=== PATIENT | female | born 1990 | race Caucasian/White ===

== ENCOUNTER 2017-09-22 11:34 | Emergency (ER) | payer MEDICAID ==
[2017-09-22 11:40] VITALS: BP 131/90; PULSE 66; TEMP 98; O2SAT 100
--- NOTE | 2017-09-22 12:36 | C.PDOC ---
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 Patient denies LOC, headache, neck pain, numbness, weakness, or vision change. Time Seen by Provider: 09/22/17 12:02 Chief Complaint (Nursing): Abnormal Skin Integrity History Per: Patient History/Exam Limitations: no limitations Onset/Duration Of Symptoms: Mins Current Symptoms Are (Timing): Still Present Location Of Injury: Left: Head (eyebrow) Quality Of Symptoms: Painful Recent travel outside of the [place]: No Additional History Per: Patient Past Medical History Reviewed: Historical Data, Nursing Documentation, Vital Signs Vital Signs: Last Vital Signs Temp 98 F 09/22/17 11:36 Pulse 66 09/22/17 11:36 Resp 18 09/22/17 12:36 BP 131/90 09/22/17 11:36 Pulse Ox 100 09/22/17 17:59 - Medical History PMH: Asthma Surgical History: No Surg Hx Family History: States: Unknown Family Hx - Social History Hx Tobacco Use: No Hx Alcohol Use: No Hx Substance Use: No - Immunization History Hx Tetanus Toxoid Vaccination: No Hx Influenza Vaccination: No Hx Pneumococcal Vaccination: No Review Of Systems Constitutional: Negative for: Fever Eyes: Negative for: Vision Change Musculoskeletal: Negative for: Neck Pain, Back Pain Skin: Positive for: Other (Laceration to the left eyebrow) Neurological: Negative for: Weakness, Numbness, Headache, Dizziness Physical Exam - Physical Exam Appears: Non-toxic, No Acute Distress Skin: Normal Color, Warm, Dry, No Rash Head: Normacephalic, Laceration (1 cm to the medial left eyebrow) Eye(s): bilateral: Normal Inspection, PERRL, EOMI Ear(s): Bilateral: Normal Oral Mucosa: Moist Throat: No Erythema, No Exudate Neck: Normal ROM, Supple Extremity: Normal ROM, No Swelling Neurological/Psych: Oriented x3, Normal Speech, Normal Cognition, Normal Motor Gait: Steady ED Course And Treatment O2 Sat by Pulse Oximetry: 100 (On RA) Pulse Ox Interpretation: Normal Laceration - Laceration Repair No standard instances Wound Length (In cm): 1 cm Description Of Wound: Linear Wound Cleansed With: Sterile Saline Anesthesia: Lidocaine 1% Wound Examination: Irrigated With Saline, No FB With Wound Exploration Wound Closure: Steri Strips (X2), Skin Glue Wound Complexity: Simple Medical Decision Making Medical Decision Making: Wound was anesthetized, cleansed thoroughly, NS irrigation, and explored: No foreign body or deep structure involvement was detected. Entire laceration closed with skin glue. Patients condition remained stable throughout Emergency Department evaluation with no evidence of neurological instability. Disposition - Disposition Referrals: Armin Dai MD [Medical Doctor] - Disposition: HOME/ ROUTINE Disposition Time: 12:33 Condition: GOOD Additional Instructions: Keep the wound clean and dry. 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 - Scribe Statement The provider has reviewed the documentation as recorded by the Scribe Guille Langford All medical record entries made by the Scribe were at my direction and personally dictated by me. I have reviewed the chart and agree that the record accurately reflects my personal performance of the history, physical exam, medical decision making, and the department course for this patient. I have also personally directed, reviewed, and agree with the discharge instructions and disposition.
[2017-09-22 12:57] VITALS: RESP 18
== END 2017-09-22 12:36 | disposition home or self-care (01) ==
LOC: C.ER 11:34
DX: S01.112A Laceration without foreign body of left eyelid and periocular area, initial encounter (principal); W22.8XXA Striking against or struck by other objects, initial encounter; Y92.89 Other specified places as the place of occurrence of the external cause

== ENCOUNTER 2018-01-17 09:12 | Inpatient (IN) | payer MEDICAID ==
[2018-01-17 10:01] LABS: BASO # 0.1 K/uL (0.0-0.2); BASO % 0.7 % (0.0-2.0); EOS # 0.1 K/uL (0.0-0.7); EOS % 1.5 % (0.0-4.0); LYMPH # 1.9 K/uL (1.0-4.3); MEAN CORPUSCULAR HEMOGLOBIN 31.6 pg (27.0-31.0); MEAN PLATELET VOLUME 9.5 fL (7.2-11.7); MONO # 0.8 K/uL (0.0-0.8); MONO % 8.1 % (0.0-10.0); NEUT # 7.1 K/uL (1.8-7.0); NEUT % 70.7 % (50.0-75.0); RBC 4.12 Mil/uL (3.80-5.20); RED CELL DISTRIBUTION WIDTH 14.1 % (11.5-14.5)
[2018-01-17 10:07] LABS: HCG,QUALITATIVE URINE NEGATIVE (NEGATIVE)
[2018-01-17 10:15] LABS: SQUAMOUS EPITHIAL 27 /hpf (0-5); URINE BACTERIA RARE (<OCC); URINE BILIRUBIN NEGATIVE (NEGATIVE); URINE BLOOD 3+ (NEGATIVE); URINE CLARITY Hazy (Clear); URINE COLOR Amber (YELLOW); URINE GLUCOSE (UA) NORMAL (Normal); URINE LEUKOCYTE ESTERASE TRACE Leu/uL (Negative); URINE PROTEIN 1+ mg/dL (NEGATIVE)
[2018-01-17 10:19] LABS: GFR AFRICAN-AMERICAN > 60; GFR NON-AFRICAN AMERICAN > 60
[2018-01-17 10:31] LABS: BLOOD UREA NITROGEN 5 mg/dL (7-17)
--- NOTE | 2018-01-17 10:45 | C.PDOC ---
History Of Present Illness 27yo female with history of asthma, presents to ED with complaints of left sided anterior chest pain, left rib pain and left shoulder pain for the past couple days. Patient states 1 month ago, she received plastic surgery in [facility], involving her abdomen, buttocks and breasts and states she was healing well. Patient first experienced her symptoms at work yesterday and states it is exacerbated with deep inspiration and movement. She reports chills last night but denies any fever, cough, nausea, vomiting or diarrhea. Patient has no other medical complaints. Time Seen by Provider: 01/17/18 09:24 Chief Complaint (Nursing): Upper Extremity Problem/Injury History Per: Patient History/Exam Limitations: no limitations Onset/Duration Of Symptoms: Days Current Symptoms Are (Timing): Still Present Quality: "Pain" Additional History Per: Patient Past Medical History Reviewed: Historical Data, Nursing Documentation, Vital Signs Vital Signs: Last Vital Signs Temp 97.9 F 01/17/18 12:48 Pulse 88 01/17/18 12:48 Resp 18 01/17/18 12:48 BP 137/98 H 01/17/18 12:48 Pulse Ox 95 01/17/18 13:13 - Medical History PMH: Asthma Other Surgeries: liposuction, breast and buttock augmentation Family History: States: Unknown Family Hx - Social History Hx Tobacco Use: No Hx Alcohol Use: No Hx Substance Use: No - Immunization History Hx Tetanus Toxoid Vaccination: No Hx Influenza Vaccination: No Hx Pneumococcal Vaccination: No Review Of Systems Except As Marked, All Systems Reviewed And Found Negative. Constitutional: Positive for: Chills. Negative for: Fever Cardiovascular: Positive for: Chest Pain Respiratory: Negative for: Cough, Shortness of Breath Gastrointestinal: Negative for: Nausea, Vomiting, Diarrhea Musculoskeletal: Positive for: Shoulder Pain (left), Arm Pain (left) Physical Exam - Physical Exam Appears: Non-toxic, Other (in pain) Skin: Normal Color, Warm, Dry Head: Normacephalic Eye(s): bilateral: Normal Inspection Oral Mucosa: Moist Throat: Normal Neck: Normal ROM, Supple Chest: Symmetrical, Tenderness (reproducibl tenderness to left clavicle) Cardiovascular: Rhythm Regular (tachycardic) Respiratory: Normal Breath Sounds Gastrointestinal/Abdominal: Normal Exam, Soft, No Tenderness Back: Normal Inspection Extremity: Normal ROM, Tenderness (tenderness left shoulder), No Deformity Neurological/Psych: Oriented x3 ED Course And Treatment - Laboratory Results Result Diagrams: 01/17/18 09:55 01/17/18 09:55 ECG: Interpreted By Me, Viewed By Me ECG Rhythm: Sinus Rhythm Interpretation Of ECG: Flipped T's in inferior leads. No ST/T wave changes Rate From EC O2 Sat by Pulse Oximetry: 95 (RA) Pulse Ox Interpretation: Normal Medical Decision Making Medical Decision Making: Impression: Musculoskeletal pain r/o PE Plan: -- Labs -- EKG -- CTA Chest Time: 1247 Call from radiologist, patient with PE in bilateral lungs. CTA Chest FINDINGS: PULMONARY ARTERIES: There are bilateral pulmonary arterial emboli seen as pulmonary arterial filling defects in both lower lobes. These are seen segmental and subsegmental vessels in the lower lobes. No large central pulmonary embolus is evident. AORTA: No acute findings. No thoracic aortic aneurysm. LUNGS: There is focal ill-defined opacity in the left lower lobe. Nonspecific. No other infiltrate is seen. No pulmonary mass is identified. PLEURAL SPACES: Unremarkable. No effusion or pneuomothorax. HEART: Unremarkable. No cardiomegaly. No significant pericardial effusion. LYMPH NODES: No lymphadenopathy. BONES, CHEST WALL: Unremarkable. No fracture or destructive lesion bilateral breast augmentation prostheses are noted. OTHER FINDINGS: Unremarkable. IMPRESSION: Bilateral lower lobe pulmonary emboli in segmental and subsegmental branches. Nonspecific focal opacity in the left lower lobe. No other acute abnormality. These findings were discussed by telephone with Dr. Rich at 12:46 p.m. on 2017. Time: 1258 Heparin Drip and bolus ordered. Morphine 4mg IV ordered. Time: [address] Oneida Paredes who will admit patient under his service to [facility] for PE and dyspnea. Disposition Counseled Patient/Family Regarding: Studies Performed, Diagnosis - Disposition Disposition: HOSPITALIZED Disposition Time: 13:06 Condition: GUARDED Forms: [employer] (Macedonian) - Clinical Impression Clinical Impression: Pulmonary embolism, Dyspnea - Scribe Statement The provider has reviewed the documentation as recorded by the Scribe (Alicia Mcqueen) Provider Attestation: All medical record entries made by the Scribe were at my direction and personally dictated by me. I have reviewed the chart and agree that the record accurately reflects my personal performance of the history, physical exam, medical decision making, and the department course for this patient. I have also personally directed, reviewed, and agree with the discharge instructions and disposition. Decision To Admit - Pt Status Changed To: Hospital Disposition Of: Inpatient - Admit Certification Admit to Inpatient:: After my assessment, the patient will require hospitalization for at least two midnights. This is because of the severity of symptoms shown, intensity of services needed, and/or the medical risk in this patient being treated as an outpatient. - InPatient: Physician Admission Certification: I certify that this patient requires 2 or more midnights of care for the following reason:: PE, b/l - . Bed Request Type: Telemetry Admitting Physician: Mike Paredes Patient Diagnosis: Pulmonary embolism, Dyspnea
[2018-01-17] MEDS ORDERED: Iodixanol 320 MG/ML 100 ML BOTTLE IV ONE (10:49)
--- NOTE | 2018-01-17 12:48 | CT ---
PROCEDURE: CT Chest with contrast (Pulmonary Angiogram) HISTORY: SOB, shoulder pain COMPARISON: None available. TECHNIQUE: Axial computed tomography images were obtained of the chest in the pulmonary arterial phase of enhancement. Coronal and sagittal reformatted images were created and reviewed. Intravenous contrast dose: 100 mL Visipaque 320 Radiation dose: Total exam DLP = 436.83 mGy-cm. This CT exam was performed using one or more of the following dose reduction techniques: Automated exposure control, adjustment of the mA and/or kV according to patient size, and/or use of iterative reconstruction technique. FINDINGS: PULMONARY ARTERIES: There are bilateral pulmonary arterial emboli seen as pulmonary arterial filling defects in both lower lobes. These are seen segmental and subsegmental vessels in the lower lobes. No large central pulmonary embolus is evident. AORTA: No acute findings. No thoracic aortic aneurysm. LUNGS: There is focal ill-defined opacity in the left lower lobe. Nonspecific. No other infiltrate is seen. No pulmonary mass is identified. PLEURAL SPACES: Unremarkable. No effusion or pneuomothorax. HEART: Unremarkable. No cardiomegaly. No significant pericardial effusion. LYMPH NODES: No lymphadenopathy. BONES, CHEST WALL: Unremarkable. No fracture or destructive lesion bilateral breast augmentation prostheses are noted. OTHER FINDINGS: Unremarkable. IMPRESSION: Bilateral lower lobe pulmonary emboli in segmental and subsegmental branches. Nonspecific focal opacity in the left lower lobe. No other acute abnormality. These findings were discussed by telephone with Dr. Rich at 12:46 p.m. on 01/17/2018.
[2018-01-17] MEDS ORDERED: Heparin25000 units/250ml 1/2NS 25,000 UNITS/250 ML BAG IV PRN (13:06)
[2018-01-17] MEDS ORDERED: Morphine 4 MG/ML VIAL ONE (13:09)
[2018-01-17 13:40] LABS: INR 1.3; PROTHROMBIN TIME 14.1 SECONDS (9.7-12.2)
--- NOTE | 2018-01-17 14:17 | CP.PCM.HP ---
History of Present Illness - History of Present Illness History of Present Illness: Code status: Full code PMD: Dr. [facility] Proxy: Karan Mitchell () [phone] PGY-1 H&P for Dr. Homa Paredes CC: Dyspnea This is a 27 year old female with PMHx asthma who presented to the ED with dyspnea, left sided subclavicular pain, left anterior rib pain. This began yesterday after returning home from work. Patient climbed the stairs and felt some dyspnea as well as discomfort in the aforementioned regions. Patient states that pain is intermittent, described as stabbing sensation without radiation. It can go up to 10/10 and is exacerbated with deep inspiration. Patient states that the morphine given in the ED has relieved her pain. Of note , patient recently had multiple plastic surgeries on December 19, 2017 in [facility]. These include breast augmentation, LipoLaser treatments, and fat transfer from the abdomen to the buttocks. Patient states that she was not sedentary post procedures. However she does note that a few days after the surgeries, she had pain in the right leg which has since resolved. PMHx: Asthma PSHx: on December 19, 2017, had breast augmentation, LipoLaser treatments, fat transfer from abdomen to buttocks. Allergies: NKDA Social: Smoked briefly and occasionally at age 17 or 18 but not daily. Occasional alcohol use. Denies drug use. 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 Lives with , son, and mother at home. Family Hx: Grandfather with DM. Mother with DM and HTN. Denies family history of coagulation disorders. Home Meds: PRN albuterol inhaler she uses once a month. Metformin 500 mg daily, Spironolactone 50 mg daily, Potassium 8 mEQ daily. Present on Admission - Present on Admission Any Indicators Present on Admission: Yes History of DVT/PE: Yes - Notes: Notes:: PE on this admission Review of Systems - Constitutional Constitutional: absent: Chills, Fever - EENT Eyes: absent: Change in Vision Ears: absent: Decreased Hearing Nose/Mouth/Throat: absent: Nasal Congestion - Cardiovascular Cardiovascular: absent: Chest Pain - Respiratory Respiratory: Dyspnea, Pain on Inspiration. absent: Cough, Wheezing - Gastrointestinal Gastrointestinal: absent: Abdominal Pain, Nausea, Vomiting - Genitourinary Genitourinary: absent: Dysuria - Musculoskeletal Musculoskeletal: Other (rib pain) - Integumentary Integumentary: Other (multiple sutures from prior procedure) - Neurological Neurological: absent: Weakness - Psychiatric Psychiatric: absent: Anxiety - Endocrine Endocrine: absent: Palpitations Past Patient History - Past Social History Smoking Status: Never Smoked - PULMONARY Hx Asthma: Yes - PSYCHIATRIC Hx Substance Use: No - SURGICAL HISTORY Hx Surgeries: Yes Other/Comment: breast augmentation, laser liposuction - ANESTHESIA Hx Anesthesia: No Hx Anesthesia Reactions: No Meds Allergies/Adverse Reactions: Allergies Allergy/AdvReac Type Severity Reaction Status Date / Time No Known Allergies Allergy Verified 09/22/17 11:40 Physical Exam - Constitutional Appears: No Acute Distress - Head Exam Head Exam: ATRAUMATIC, NORMOCEPHALIC - Eye Exam Eye Exam: EOMI, PERRL - ENT Exam ENT Exam: Mucous Membranes Moist - Respiratory Exam Respiratory Exam: Decreased Breath Sounds (likely due to poor inspiratory effort secondary to pain), NORMAL BREATHING PATTERN. absent: Rales, Rhonchi, Wheezes - Cardiovascular Exam Cardiovascular Exam: REGULAR RHYTHM, +S1, +S2 - GI/Abdominal Exam GI & Abdominal Exam: Normal Bowel Sounds, Soft. absent: Distended, Tenderness Additional comments: Three pieces of long tape on the abdomen and two small pieces as well - Extremities Exam Extremities exam: Positive for: normal capillary refill, normal inspection, pedal pulses present. Negative for: pedal edema, tenderness - Neurological Exam Neurological exam: Alert, CN II-XII Intact, Oriented x3 - Psychiatric Exam Psychiatric exam: Normal Affect, Normal Mood - Skin Skin Exam: Dry, Normal Color, Warm Additional comments: Sutures on top of the gluteal fold Sutures on each of the breasts Results - Vital Signs Recent Vital Signs: Last Vital Signs Temp 97.9 F 01/17/18 12:48 Pulse 88 01/17/18 12:48 Resp 18 01/17/18 12:48 BP 137/98 H 01/17/18 12:48 Pulse Ox 95 01/17/18 13:23 - Labs Result Diagrams: 01/17/18 09:55 01/17/18 09:55 Labs: Laboratory Results - last 24 hr 01/17/18 01/17/18 01/17/18 09:55 09:55 09:55 WBC 10.0 RBC 4.12 Hgb 13.0 D Hct 38.3 MCV 93.0 MCH 31.6 H MCHC 34.0 RDW 14.1 Plt Count 253 MPV 9.5 Neut % (Auto) 70.7 Lymph % (Auto) 19.0 L Will % (Auto) 8.1 Eos % (Auto) 1.5 Baso % (Auto) 0.7 Neut # (Auto) 7.1 H Lymph # (Auto) 1.9 Will # (Auto) 0.8 Eos # (Auto) 0.1 Baso # (Auto) 0.1 PT INR APTT Sodium 140 Potassium 4.6 Chloride 101 Carbon Dioxide 25 Anion Gap 18 BUN 5 L Creatinine 0.6 L Est GFR ( Amer) > 60 Est GFR (Non-Af Amer) > 60 Random Glucose 94 Calcium 9.0 Urine Color [place] Urine Clarity Hazy Urine pH 6.0 Ur Specific [place] 1.018 Urine Protein 1+ H Urine Glucose (UA) Normal Urine Ketones Negative Urine Blood 3+ H Urine Nitrate Negative Urine Bilirubin Negative Urine Urobilinogen 2.0 H Ur Leukocyte Esterase Trace Urine WBC (Auto) 10 H Urine RBC (Auto) 7 H Ur Squamous Epith Cells 27 H Urine Bacteria Rare Urine HCG, Qual Negative 01/17/18 13:24 WBC RBC Hgb Hct MCV MCH MCHC RDW Plt Count MPV Neut % (Auto) Lymph % (Auto) Will % (Auto) Eos % (Auto) Baso % (Auto) Neut # (Auto) Lymph # (Auto) Will # (Auto) Eos # (Auto) Baso # (Auto) PT 14.1 H INR 1.3 APTT 34 Sodium Potassium Chloride Carbon Dioxide Anion Gap BUN Creatinine Est GFR ( Amer) Est GFR (Non-Af Amer) Random Glucose Calcium Urine Color Urine Clarity Urine pH Ur Specific [place] Urine Protein Urine Glucose (UA) Urine Ketones Urine Blood Urine Nitrate Urine Bilirubin Urine Urobilinogen Ur Leukocyte Esterase Urine WBC (Auto) Urine RBC (Auto) Ur Squamous Epith Cells Urine Bacteria Urine HCG, Qual Assessment & Plan - Assessment and Plan (Free Text) Plan: Bilateral Pulmonary Emboli CTA shows bilateral lower lobe pulmonary emboli in segmental and subsegmental branches Therapeutic Lovenox 70 mg SC Q12 Hypercoagulable work-up including * Factor 5 leiden * Antithrombin 3 mutation * Prothrombin gene mutation * Lupus anticoagulant * Protein C&S studies * Antiphospholipid antibody f/u echocardiogram to assess for right heart strain f/u venous dopplers Toradol 15 mg Q6 for moderate and 30 mg IV for severe pain History of Asthma Controlled as evidenced by the fact that the patient uses her inhaler infrequently around once a month Duonebs Q6 prn Questionable History of Hypertension Patient denies history of Hypertension despite her medication list Patient was placed on Spironolactone 50 mg daily post surgery though denies history of HTN Monitor blood pressure Questionable History of Diabetes Patient denies history of diabetes despite her medication list Patient was placed on Metformin 500 mg once daily post surgery though denies history of DM f/u hemoglobin A1c Prophylactic Measures Heart Healthy Diet Lovenox 70 mg Q12H Protonix 40 mg PO daily Discussed with Dr. Oneida Brar PGY-1
[2018-01-17] MEDS: Enoxaparin 80 mg Syringe SC SCH ×2 (14:33→21:52)
[2018-01-17] MEDS ORDERED: Albuterol HFA 90 mcg/actuation (8 g) INH PRN (14:56)
[2018-01-17] MEDS: Pantoprazole 40 mg EC Tab PO SCH (16:42)
[2018-01-17] MEDS: (Novolin R) Insulin Human Regular 100 units/ml vial SC SCH ×2 (16:46→21:11)
[2018-01-17 16:53] VITALS: RESP 20
--- NOTE | 2018-01-17 18:35 | CARD ---
APPROVED REPORT EXAM: Two-dimensional and M-mode echocardiogram with Doppler and color Doppler. Other Information Quality : LimitedRhythm : INDICATION Pulmonary Embolism Bilateral Pulmonary Edema 2D DIMENSIONS IVSd0.8 (0.7-1.1cm)LVDd4.7 (3.9-5.9cm) PWd0.8 (0.7-1.1cm)LVDs3.1 (2.5-4.0cm) FS (%) 33.5 %LVEF (%)62.3 (>50%) M-Mode DIMENSIONS Left Atrium (MM)2.76 (2.5-4.0cm)Aortic Root2.88 (2.2-3.7cm) Aortic Cusp Exc.1.62 (1.5-2.0cm) Mitral Valve MV E Wcdcxgtp74.7cm/sMV A Hiccohrf81.3cm/sE/A ratio1.0 TDI E/Lateral E'0.0E/Medial E'0.0 LEFT VENTRICLE The left ventricle is normal size. There is normal left ventricular wall thickness. The left ventricular function is normal. The left ventricular ejection fraction is within the normal range. No regional wall motion abnormalities noted. The left ventricular diastolic function is indeterminate. RIGHT VENTRICLE The right ventricle is mildly dilated. The right ventricular systolic function is normal. ATRIA The left atrium size is normal. The right atrium size is normal. AORTIC VALVE The aortic valve is normal in function. No aortic regurgitation is present. There is no aortic valvular stenosis. There is no aortic valvular vegetation. MITRAL VALVE The mitral valve is normal in structure and function. There is no evidence of mitral valve prolapse. There is no mitral valve stenosis. There is no mitral valve regurgitation noted. TRICUSPID VALVE The tricuspid valve is normal in structure and function. There is no tricuspid valve regurgitation noted. There is no tricuspid valve prolapse or vegetation. There is no tricuspid valve stenosis. PULMONIC VALVE The pulmonary valve is normal in structure and function. There is mild pulmonic valvular regurgitation. There is no pulmonic valvular stenosis. GREAT VESSELS The aortic root is normal in size. The ascending aorta is normal in size. PERICARDIAL EFFUSION There is no pleural effusion. <Conclusion> Study quality is sub-optimal Normal LV systolic functioin. Mildly diilated RV with normal RF systolic function. Normal Doppler.
[2018-01-17] MEDS: Albuterol-Ipratrop 3 mg / 0.5 (3 ml) UD INH PRN (19:39)
[2018-01-18 06:39] LABS: BASO % 0.3 % (0.0-2.0); EOS # 0.1 K/uL (0.0-0.7); EOS % 1.4 % (0.0-4.0); HEMOGLOBIN 12.8 g/dL (11.0-16.0); LYMPH # 1.7 K/uL (1.0-4.3); LYMPH % 17.9 % (20.0-40.0); MEAN CELL VOLUME 93.2 fL (81.0-99.0); MEAN CORPUSCULAR HGB CONC 34.3 g/dL (33.0-37.0); MEAN PLATELET VOLUME 9.2 fL (7.2-11.7); NEUT # 6.4 K/uL (1.8-7.0); NEUT % 69.4 % (50.0-75.0); RBC 4.01 Mil/uL (3.80-5.20); RED CELL DISTRIBUTION WIDTH 14.3 % (11.5-14.5); WHITE BLOOD COUNT 9.3 K/uL (4.8-10.8)
[2018-01-18 07:34] LABS: ALB/GLOB RATIO 1.1 (1.0-2.1); ALBUMIN 3.8 g/dL (3.5-5.0); ALT/SGPT 31 U/L (9-52); AST/SGOT 23 U/L (14-36); BLOOD UREA NITROGEN 7 mg/dL (7-17); CALCIUM 9.2 mg/dl (8.6-10.4); GFR AFRICAN-AMERICAN > 60; GFR NON-AFRICAN AMERICAN > 60
[2018-01-18 07:48] VITALS: BP 108/70; TEMP 98.3; O2SAT 100
[2018-01-18] MEDS: (Novolin R) Insulin Human Regular 100 units/ml vial SC SCH ×2 (08:30→12:00)
[2018-01-18] MEDS: Albuterol-Ipratrop 3 mg / 0.5 (3 ml) UD INH PRN (08:31)
[2018-01-18 08:53] VITALS: PULSE 85
[2018-01-18] MEDS: Pantoprazole 40 mg EC Tab PO SCH (09:42)
[2018-01-18] MEDS: Enoxaparin 80 mg Syringe SC SCH (09:42)
--- NOTE | 2018-01-18 11:56 | CP.PCM.DIS ---
<Stalin Thomas - Last Filed: 01/18/18 12:24> Provider - Provider Date of Admission: 01/17/18 13:23 Attending physician: Mike Paredes MD Primary care physician: PMD: Dr. Dai Time Spent in preparation of Discharge (in minutes): 33 Hospital Course - Lab Results Lab Results: Most Recent Lab Values WBC 9.3 K/uL (4.8-10.8) 01/18/18 06:20 RBC 4.01 Mil/uL (3.80-5.20) 01/18/18 06:20 Hgb 12.8 g/dL (11.0-16.0) 01/18/18 06:20 Hct 37.4 % (34.0-47.0) 01/18/18 06:20 MCV 93.2 fL (81.0-99.0) 01/18/18 06:20 MCH 32.0 pg (27.0-31.0) H 01/18/18 06:20 MCHC 34.3 g/dL (33.0-37.0) 01/18/18 06:20 RDW 14.3 % (11.5-14.5) 01/18/18 06:20 Plt Count 273 K/uL (130-400) 01/18/18 06:20 MPV 9.2 fL (7.2-11.7) 01/18/18 06:20 Neut % (Auto) 69.4 % (50.0-75.0) 01/18/18 06:20 Lymph % (Auto) 17.9 % (20.0-40.0) L 01/18/18 06:20 [place] % (Auto) 11.0 % (0.0-10.0) H 01/18/18 06:20 Eos % (Auto) 1.4 % (0.0-4.0) 01/18/18 06:20 Baso % (Auto) 0.3 % (0.0-2.0) 01/18/18 06:20 Neut # (Auto) 6.4 K/uL (1.8-7.0) 01/18/18 06:20 Lymph # (Auto) 1.7 K/uL (1.0-4.3) 01/18/18 06:20 [place] # (Auto) 1.0 K/uL (0.0-0.8) H 01/18/18 06:20 Eos # (Auto) 0.1 K/uL (0.0-0.7) 01/18/18 06:20 Baso # (Auto) 0.0 K/uL (0.0-0.2) 01/18/18 06:20 PT 14.1 SECONDS (9.7-12.2) H 01/17/18 13:24 INR 1.3 01/17/18 13:24 APTT 34 SECONDS (21-34) 01/17/18 13:24 Sodium 142 mmol/L (132-148) 01/18/18 06:20 Potassium 4.0 mmol/L (3.6-5.2) 01/18/18 06:20 Chloride 101 mmol/L (98-107) 01/18/18 06:20 Carbon Dioxide 28 mmol/L (22-30) 01/18/18 06:20 Anion Gap 16 (10-20) 01/18/18 06:20 BUN 7 mg/dL (7-17) 01/18/18 06:20 Creatinine 0.7 mg/dL (0.7-1.2) 01/18/18 06:20 Est GFR ( Amer) > 60 01/18/18 06:20 Est GFR (Non-Af Amer) > 60 01/18/18 06:20 POC Glucose (mg/dL) 103 mg/dL (65-110) 01/18/18 06:19 Random Glucose 107 mg/dL (65-105) H 01/18/18 06:20 Hemoglobin A1c 4.6 % (4.2-6.5) 01/18/18 06:20 Calcium 9.2 mg/dl (8.6-10.4) 01/18/18 06:20 Phosphorus 4.4 mg/dL (2.5-4.5) 01/18/18 06:20 Magnesium 1.7 mg/dL (1.6-2.3) 01/18/18 06:20 Total Bilirubin 0.8 mg/dL (0.2-1.3) 01/18/18 06:20 AST 23 U/L (14-36) 01/18/18 06:20 ALT 31 U/L (9-52) 01/18/18 06:20 Alkaline Phosphatase 60 U/L (38-126) 01/18/18 06:20 Total Protein 7.2 g/dL (6.3-8.3) 01/18/18 06:20 Albumin 3.8 g/dL (3.5-5.0) 01/18/18 06:20 Globulin 3.4 gm/dL (2.2-3.9) 01/18/18 06:20 Albumin/Globulin Ratio 1.1 (1.0-2.1) 01/18/18 06:20 Urine Color Maritza (YELLOW) 01/17/18 09:55 Urine Clarity Hazy (Clear) 01/17/18 09:55 Urine pH 6.0 (5.0-8.0) 01/17/18 09:55 Ur Specific [place] 1.018 (1.003-1.030) 01/17/18 09:55 Urine Protein 1+ mg/dL (NEGATIVE) H 01/17/18 09:55 Urine Glucose (UA) Normal mg/dL (Normal) 01/17/18 09:55 Urine Ketones Negative mg/dL (NEGATIVE) 01/17/18 09:55 Urine Blood 3+ (NEGATIVE) H 01/17/18 09:55 Urine Nitrate Negative (NEGATIVE) 01/17/18 09:55 Urine Bilirubin Negative (NEGATIVE) 01/17/18 09:55 Urine Urobilinogen 2.0 mg/dL (0.2-1.0) H 01/17/18 09:55 Ur Leukocyte Esterase Trace Yifan/uL (Negative) 01/17/18 09:55 Urine WBC (Auto) 10 /hpf (0-5) H 01/17/18 09:55 Urine RBC (Auto) 7 /hpf (0-3) H 01/17/18 09:55 Ur Squamous Epith Cells 27 /hpf (0-5) H 01/17/18 09:55 Urine Bacteria Rare (<OCC) 01/17/18 09:55 Urine HCG, Qual Negative (NEGATIVE) 01/17/18 09:55 - Hospital Course Hospital Course: Code status: Full code PMD: Dr. Dai [facility] Proxy: Karan Mitchell () [phone] PGY-1 H&P for Dr. Homa Paredes CC: Dyspnea This is a 27 year old female with PMHx asthma who presented to the ED with dyspnea, left sided subclavicular pain, left anterior rib pain. This began yesterday after returning home from work. Patient climbed the stairs and felt some dyspnea as well as discomfort in the aforementioned regions. Patient states that pain is intermittent, described as stabbing sensation without radiation. It can go up to 10/10 and is exacerbated with deep inspiration. Patient states that the morphine given in the ED has relieved her pain. Of note , patient recently had multiple plastic surgeries on December 19, 2017 in [facility]. These include breast augmentation, LipoLaser treatments, and fat transfer from the abdomen to the buttocks. Patient states that she was not sedentary post procedures. However she does note that a few days after the surgeries, she had pain in the right leg which has since resolved. PMHx: Asthma PSHx: on December 19, 2017, had breast augmentation, LipoLaser treatments, fat transfer from abdomen to buttocks. Allergies: NKDA Social: Smoked briefly and occasionally at age 17 or 18 but not daily. Occasional alcohol use. Denies drug use. 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 Lives with , son, and mother at home. Family Hx: Grandfather with DM. Mother with DM and HTN. Denies family history of coagulation disorders. Home Meds: PRN albuterol inhaler she uses once a month. Metformin 500 mg daily, Spironolactone 50 mg daily, Potassium 8 mEQ daily. HOSPITAL COURSE: Patient was determined to have bilateraly lower lobe pulmonary emboli in the segmental and sub-segmental branches. Venous dopplers were done which showed thrombosis in the deep vein in the right lower extremity. She was immediately started on therapeutic lovenox 70mg SC Q12H. An Echo was done which showed mild right ventricle dilation. EKG was not indicative of right heart strain. A hypercoaguable work-up was declined by the patient. Even though we believe her clot formation is most likely due to her recent cosmetic surgery and airplane travel - a hypercoaguability workup should be performed. She was advised on discharge to follow-up with a memory care director so a hypercoaguablity work-up could be a done at a later time. She was given ketorlac for pain relief. There was questionable hx of diabetes and htn however patient had a HgbA1C of 4.7 and she was not hypertensive during her stay. Bilateral Pulmonary Emboli CTA shows bilateral lower lobe pulmonary emboli in segmental and subsegmental branches Therapeutic Lovenox 70 mg SC Q12 Hypercoagulable work-up including * Factor 5 leiden * Antithrombin 3 mutation * Prothrombin gene mutation * Lupus anticoagulant * Protein C&S studies * Antiphospholipid antibody f/u echocardiogram to assess for right heart strain f/u venous dopplers Toradol 15 mg Q6 for moderate and 30 mg IV for severe pain History of Asthma Controlled as evidenced by the fact that the patient uses her inhaler infrequently around once a month Duonebs Q6 prn Questionable History of Hypertension Patient denies history of Hypertension despite her medication list Patient was placed on Spironolactone 50 mg daily post surgery though denies history of HTN Monitor blood pressure Questionable History of Diabetes Patient denies history of diabetes despite her medication list Patient was placed on Metformin 500 mg once daily post surgery though denies history of DM hemoglobin A1c 4.7 Prophylactic Measures Heart Healthy Diet Lovenox 70 mg Q12H Protonix 40 mg PO daily Discharge Exam - Additional Findings Additional findings: - Constitutional Appears: No Acute Distress - Head Exam Head Exam: ATRAUMATIC, NORMOCEPHALIC - Eye Exam Eye Exam: EOMI, PERRL - ENT Exam ENT Exam: Mucous Membranes Moist - Respiratory Exam Respiratory Exam: Decreased Breath Sounds (likely due to poor inspiratory effort secondary to pain), NORMAL BREATHING PATTERN. absent: Rales, Rhonchi, Wheezes - Cardiovascular Exam Cardiovascular Exam: REGULAR RHYTHM, +S1, +S2 - GI/Abdominal Exam GI & Abdominal Exam: Normal Bowel Sounds, Soft. absent: Distended, Tenderness Additional comments: Three pieces of long tape on the abdomen and two small pieces as well - Extremities Exam Extremities exam: Positive for: normal capillary refill, normal inspection, pedal pulses present. Negative for: pedal edema, tenderness - Neurological Exam Neurological exam: Alert, CN II-XII Intact, Oriented x3 - Psychiatric Exam Psychiatric exam: Normal Affect, Normal Mood - Skin Skin Exam: Dry, Normal Color, Warm Additional comments: Sutures on top of the gluteal fold Sutures on each of the breasts Discharge Plan - Discharge Medications Prescriptions: Apixaban [Eliquis] 10 mg PO BID 7 Days #14 tablet Apixaban [Eliquis] 5 mg PO BID 23 Days #46 tab.ds.pk Ibuprofen [Motrin Tab] 600 mg PO Q6H #14 tab - Follow Up Plan Condition: GUARDED Disposition: HOME/ ROUTINE Instructions: Pulmonary Embolism (Blood Clot in the Lungs), Heart Healthy Diet , Apixaban, Ibuprofen, Dyspnea (GEN) Additional Instructions: Patient is medically stable for discharge. Patient should follow-up with her PMD, Dr Dr. Dai 1 week from discharge so he may be aware of this hospital admission. Patient should attain a referral to a memory care director regarding as to why patient had these blood clots. We believe it was situational (recent surgery and airplane travel) however patient should follow-up with a memory care director to ascertain there is not another reason as to why she was developing blood clots. We recommend memory care director Dr Jim Lacey who can be contacted at . Patient will be discharged with Eliquis which should be taken as follows: Day 1 - 7: take 10 mg dose with breakfast and 10mg dose with dinner Day 8 and going forward: take 5mg tablet with breakfast and 5mg tablet with dinner Please attain a re-fill from your PMD. A Eliquis informational packet will be given to you as well. If you need financial assistance for paying for Eliquis please visit the Eliquis website at [email or web address] If you have worrisome shortness of breath promptly go to your nearest emergency department. Referrals: Jim Lacey MD [Staff Provider] - Armin Dai MD [Medical Doctor] - 1 Week <Mike Paredes - Last Filed: 01/18/18 16:57> Provider - Provider Date of Admission: 01/17/18 13:23 Attending physician: Mike Paredes MD Time Spent in preparation of Discharge (in minutes): 40 Hospital Course - Lab Results Lab Results: Most Recent Lab Values WBC 9.3 K/uL (4.8-10.8) 01/18/18 06:20 RBC 4.01 Mil/uL (3.80-5.20) 01/18/18 06:20 Hgb 12.8 g/dL (11.0-16.0) 01/18/18 06:20 Hct 37.4 % (34.0-47.0) 01/18/18 06:20 MCV 93.2 fL (81.0-99.0) 01/18/18 06:20 MCH 32.0 pg (27.0-31.0) H 01/18/18 06:20 MCHC 34.3 g/dL (33.0-37.0) 01/18/18 06:20 RDW 14.3 % (11.5-14.5) 01/18/18 06:20 Plt Count 273 K/uL (130-400) 01/18/18 06:20 MPV 9.2 fL (7.2-11.7) 01/18/18 06:20 Neut % (Auto) 69.4 % (50.0-75.0) 01/18/18 06:20 Lymph % (Auto) 17.9 % (20.0-40.0) L 01/18/18 06:20 [place] % (Auto) 11.0 % (0.0-10.0) H 01/18/18 06:20 Eos % (Auto) 1.4 % (0.0-4.0) 01/18/18 06:20 Baso % (Auto) 0.3 % (0.0-2.0) 01/18/18 06:20 Neut # (Auto) 6.4 K/uL (1.8-7.0) 01/18/18 06:20 Lymph # (Auto) 1.7 K/uL (1.0-4.3) 01/18/18 06:20 [place] # (Auto) 1.0 K/uL (0.0-0.8) H 01/18/18 06:20 Eos # (Auto) 0.1 K/uL (0.0-0.7) 01/18/18 06:20 Baso # (Auto) 0.0 K/uL (0.0-0.2) 01/18/18 06:20 PT 14.1 SECONDS (9.7-12.2) H 01/17/18 13:24 INR 1.3 01/17/18 13:24 APTT 34 SECONDS (21-34) 01/17/18 13:24 Sodium 142 mmol/L (132-148) 01/18/18 06:20 Potassium 4.0 mmol/L (3.6-5.2) 01/18/18 06:20 Chloride 101 mmol/L (98-107) 01/18/18 06:20 Carbon Dioxide 28 mmol/L (22-30) 01/18/18 06:20 Anion Gap 16 (10-20) 01/18/18 06:20 BUN 7 mg/dL (7-17) 01/18/18 06:20 Creatinine 0.7 mg/dL (0.7-1.2) 01/18/18 06:20 Est GFR ( Amer) > 60 01/18/18 06:20 Est GFR (Non-Af Amer) > 60 01/18/18 06:20 POC Glucose (mg/dL) 103 mg/dL (65-110) 01/18/18 06:19 Random Glucose 107 mg/dL (65-105) H 01/18/18 06:20 Hemoglobin A1c 4.6 % (4.2-6.5) 01/18/18 06:20 Calcium 9.2 mg/dl (8.6-10.4) 01/18/18 06:20 Phosphorus 4.4 mg/dL (2.5-4.5) 01/18/18 06:20 Magnesium 1.7 mg/dL (1.6-2.3) 01/18/18 06:20 Total Bilirubin 0.8 mg/dL (0.2-1.3) 01/18/18 06:20 AST 23 U/L (14-36) 01/18/18 06:20 ALT 31 U/L (9-52) 01/18/18 06:20 Alkaline Phosphatase 60 U/L (38-126) 01/18/18 06:20 Total Protein 7.2 g/dL (6.3-8.3) 01/18/18 06:20 Albumin 3.8 g/dL (3.5-5.0) 01/18/18 06:20 Globulin 3.4 gm/dL (2.2-3.9) 01/18/18 06:20 Albumin/Globulin Ratio 1.1 (1.0-2.1) 01/18/18 06:20 Urine Color Marit[place] (YELLOW) 01/17/18 09:55 Urine Clarity Hazy (Clear) 01/17/18 09:55 Urine pH 6.0 (5.0-8.0) 01/17/18 09:55 Ur Specific [place] 1.018 (1.003-1.030) 01/17/18 09:55 Urine Protein 1+ mg/dL (NEGATIVE) H 01/17/18 09:55 Urine Glucose (UA) Normal mg/dL (Normal) 01/17/18 09:55 Urine Ketones Negative mg/dL (NEGATIVE) 01/17/18 09:55 Urine Blood 3+ (NEGATIVE) H 01/17/18 09:55 Urine Nitrate Negative (NEGATIVE) 01/17/18 09:55 Urine Bilirubin Negative (NEGATIVE) 01/17/18 09:55 Urine Urobilinogen 2.0 mg/dL (0.2-1.0) H 01/17/18 09:55 Ur Leukocyte Esterase Trace Yifan/uL (Negative) 01/17/18 09:55 Urine WBC (Auto) 10 /hpf (0-5) H 01/17/18 09:55 Urine RBC (Auto) 7 /hpf (0-3) H 01/17/18 09:55 Ur Squamous Epith Cells 27 /hpf (0-5) H 01/17/18 09:55 Urine Bacteria Rare (<OCC) 01/17/18 09:55 Urine HCG, Qual Negative (NEGATIVE) 01/17/18 09:55 Attending/Attestation - Attestation I have personally seen and examined this patient.: Yes I have fully participated in the care of the patient.: Yes I have reviewed all pertinent clinical information, including history, physical exam and plan: Yes Notes (Text): 01/18/18 16:28 Patient was seen and examined shortly after the resident Exam , assessment and plan were gone over with resident I called the patient after she got home as I noticed that she was provided with the incorrect number for Dr. Jim Lacey and provided her with the correct number [phone]. Patient then stated that she had some more questions concerning medication that she was given by her surgeon in [place] 1 month ago. She asked if she should continue to take Magisteral Alopatica which she was prescribed by the [facility] Surgeon and has been taking this every 2x/day. She also asked if she should continue to wear the abdominal braces that the surgeon gave her. I explained to her that I could not advise her on the medication that was prescribed by the surgeon as I could not find on [employer] exactly what this medication was or what it was used for. Also I could not advise her on the use of the brace as I am not a surgeon. I advised the patient to follow up with her PMD as soon as possible whom she has still not seen although her surgery in [place] was 1 month ago. Mike Paredes D.O.
--- NOTE | 2018-01-18 23:33 | CARD ---
APPROVED REPORT EKG Measurement Heart [id number] CO 122P17 [id number] <Conclusion> Normal sinus rhythm Voltage criteria for left ventricular hypertrophy Nonspecific ST and T wave abnormality Abnormal ECG
--- NOTE | 2018-01-19 11:23 | VASCLAB ---
PROCEDURE: Lower Extremity Venous Duplex Exam. HISTORY: bilateral PE. Evaluate for DVT PRIORS: None. TECHNIQUE: Bilateral common femoral, femoral, popliteal and posterior tibial, peroneal and great saphenous veins were evaluated. Flow was assessed with color Doppler, compressibility, assessment of phasic flow and augmentation response. Report prepared by HALEY Schmidt, RVT FINDINGS: RIGHT: 1. Common Femoral Vein: 1.1. Compressibility - Fully compressible: Thrombus - None : Flow - Phasic: Augmentation -Normal: Reflux - None. 2. Femoral Vein: 2.1. Compressibility - Fully compressible: Thrombus - None : Flow - Phasic: Augmentation -Normal: Reflux - None. 3. Popliteal Vein: 3.1. Compressibility - Partial: Thrombus - Acute : Flow - Reduced : Augmentation -None: Reflux - None. 4. Posterior Tibial Vein: 4.1. Compressibility - Fully compressible: Thrombus - None: Flow - Phasic: Augmentation -Normal: Reflux - None. 5. Peroneal Vein: 5.1. Compressibility - Partial: Thrombus - Acute: Flow - Absent : Augmentation -None: Reflux - None. 6. Great Saphenous Vein: 6.1. Compressibility - Fully compressible: Thrombus - None: Flow - Phasic: Augmentation - Normal: Reflux - None. LEFT: 1. Common Femoral Vein: 1.1. Compressibility - Fully compressible: Thrombus - None: Flow - Phasic: Augmentation -Normal: Reflux - None. 2. Femoral Vein: 2.1. Compressibility - Fully compressible: Thrombus - None: Flow - Phasic: Augmentation -Normal: Reflux - None. 3. Popliteal Vein: 3.1. Compressibility - Fully compressible: Thrombus - None : Flow - Phasic: Augmentation -Normal: Reflux - None. 4. Posterior Tibial Vein: 4.1. Compressibility - Fully compressible: Thrombus - None: Flow - Phasic: Augmentation -Normal: Reflux - None. 5. Peroneal Vein: 5.1. Compressibility - Fully compressible: Thrombus - None: Flow - Phasic: Augmentation -Normal: Reflux - None. 6. Great Saphenous Vein: 6.1. Compressibility - Fully compressible: Thrombus - None: Flow - Phasic: Augmentation - Normal: Reflux - None. OTHER FINDINGS: JOSELITO Mason notified about the findings. IMPRESSION: Right: Acute thrombosis of the right popliteal and peroneal veins with severe reduction of the venous return. Left: No evidence of deep or superficial vein thrombosis of the left lower extremity. Normal valve function noted of the left side.
== END 2018-01-18 13:08 | disposition home or self-care (01) | DRG 541 ==
LOC: C.ER 09:12 → C.9E 13:23 → C.6T 13:59
PROVIDERS: ADMIT Family Medicine; ATTEND Family Medicine
DX: J95.89 Other postprocedural complications and disorders of respiratory system, not elsewhere classified (principal); I82.401 Acute embolism and thrombosis of unspecified deep veins of right lower extremity; I26.99 Other pulmonary embolism without acute cor pulmonale; Y83.8 Other surgical procedures as the cause of abnormal reaction of the patient, or of later complication, without mention of misadventure at the time of the procedure; T81.72XA Complication of vein following a procedure, not elsewhere classified, initial encounter; E11.9 Type 2 diabetes mellitus without complications; J45.909 Unspecified asthma, uncomplicated; I10 Essential (primary) hypertension

== ENCOUNTER 2018-06-22 15:27 | Emergency (ER) | payer MEDICAID ==
[2018-06-22 15:33] VITALS: TEMP 98
--- NOTE | 2018-06-22 15:48 | C.PDOC ---
History Of Present Illness CC: Left elbow pain Patient is a 28 year old female with past medical history of asthma and DVT ( treated), who presents to the ED with complaint of left elbow pain X2 days. Patient denies any recent or previous trauma, fall or insect bite. Patient denies any other symptoms. Time Seen by Provider: 06/22/18 15:40 Chief Complaint (Nursing): Upper Extremity Problem/Injury History Per: Patient History/Exam Limitations: no limitations Onset/Duration Of Symptoms: Days Current Symptoms Are (Timing): Still Present Severity: Moderate Pain Scale Rating Of: 6 Location: Left olecranon process/ Elbow joint Quality: Achy and tender Additional History Per: Patient Past Medical History Vital Signs: Last Vital Signs Temp 98 F 06/22/18 15:34 Pulse 81 06/22/18 15:34 Resp 20 06/22/18 15:34 BP 124/85 06/22/18 15:34 Pulse Ox 100 06/22/18 16:04 - Medical History PMH: Asthma Denies: Chronic Kidney Disease Other Surgeries: Liposuction and bilateral breast implant Family History: States: No Known Family Hx, Unknown Family Hx - Social History Hx Tobacco Use: No Hx Alcohol Use: No Hx Substance Use: No - Immunization History Hx Tetanus Toxoid Vaccination: No Hx Influenza Vaccination: No Hx Pneumococcal Vaccination: No Review Of Systems Constitutional: Negative for: Fever, Chills, Weakness, Malaise Eyes: Negative for: Pain, Vision Change ENT: Negative for: Ear Pain, Ear Discharge, Nose Congestion, Mouth Pain, Throat Pain, Throat Swelling Cardiovascular: Negative for: Chest Pain, Palpitations Respiratory: Negative for: Shortness of Breath, Hemoptysis Gastrointestinal: Negative for: Nausea, Vomiting, Abdominal Pain Musculoskeletal: Positive for: Other (Left elbow pain ) Neurological: Negative for: Weakness, Numbness Physical Exam - Physical Exam Appears: No Acute Distress Skin: Normal Color, Warm Head: Atraumatic, Normacephalic Eye(s): bilateral: EOMI Cardiovascular: Rhythm Regular Respiratory: Normal Breath Sounds Gastrointestinal/Abdominal: Normal Exam, Bowel Sounds, Soft Extremity: Tenderness (At the left olecranon), Other (Pain elicited with full extension at the left elbow joint and mild inflammation ) Extremity: Bilateral: Atraumatic Pulses: Left Brachial: Normal, Left Radial: Normal Neurological/Psych: Oriented x3, Normal Speech, Normal Cognition, Normal Cranial Nerves ED Course And Treatment O2 Sat by Pulse Oximetry: 100 Medical Decision Making Medical Decision Making: Left Elbow X-ray: No acute displaced fracture, dislocation, or significant joint effusion identified. Disposition Discussed With : Be Javier - Disposition Disposition: HOME/ ROUTINE Disposition Time: 16:34 Condition: GOOD Additional Instructions: Please discharge patient home Please continue with acewrap at the left elbow joint and keep immobilize for 1 week Please avoid activities that aggravates your left elbow joint Please rest your left elbow joint Please use ice application as needed Please take Naproxen 500mg PO Q12H as needed for pain. Please take with milk or food. Please follow up with your primary care physician in 1-2 days Please take care Prescriptions: Naproxen 500 mg PO Q12 PRN #10 tab PRN Reason: Pain, Moderate (4-7) Instructions: Olecranon Bursitis (DC) Forms: [facility] (Irish) - Clinical Impression Clinical Impression: Olecranon bursitis, left elbow
--- NOTE | 2018-06-22 16:29 | RAD ---
PROCEDURE: Radiographs of the left elbow. HISTORY: Pain at the left olecranon process COMPARISON: None available FINDINGS: BONES: No acute displaced fracture. JOINTS: No dislocation. SOFT TISSUES: Unremarkable. No evidence of radiopaque foreign body. JOINT EFFUSION: No significant joint effusion. OTHER FINDINGS: None IMPRESSION: No acute displaced fracture, dislocation, or significant joint effusion identified. If symptoms persist, or if there is continued clinical concern, x-ray follow-up in 7-10 days should be considered.
[2018-06-22 16:48] VITALS: BP 121/76; PULSE 68; RESP 18; O2SAT 97
== END 2018-06-22 16:48 | disposition home or self-care (01) ==
LOC: C.ER 15:27
DX: M70.22 Olecranon bursitis, left elbow (principal)

== ENCOUNTER 2018-12-25 14:00 | Emergency (ER) | payer MEDICAID ==
[2018-12-25 14:11] VITALS: BP 114/78; PULSE 91; RESP 18; TEMP 97.3; O2SAT 95
--- NOTE | 2018-12-25 14:52 | C.PDOC ---
History Of Present Illness 28 year old female, with history of asthma, comes in to ED complaining of a cough with phlegm for the past 4 days, associated with chest tightness. Patient states she does not have any inhaler or medications for her asthma because she doesnt have the time to wait for it. Patient denies vomiting, diarrhea, fever, chills, or other symptoms. Time Seen by Provider: 12/25/18 14:29 Chief Complaint (Nursing): Cough, Cold, Congestion History Per: Patient History/Exam Limitations: no limitations Onset/Duration Of Symptoms: Days Current Symptoms Are (Timing): Still Present Past Medical History Reviewed: Historical Data, Nursing Documentation, Vital Signs Vital Signs: Last Vital Signs Temp 97.3 F L 12/25/18 14:08 Pulse 91 H 12/25/18 14:08 Resp 18 12/25/18 14:08 BP 114/78 12/25/18 14:08 Pulse Ox 95 12/25/18 14:08 - Medical History PMH: Asthma Denies: Chronic Kidney Disease Family History: States: No Known Family Hx - Social History Hx Tobacco Use: No Hx Alcohol Use: No Hx Substance Use: No - Immunization History Hx Tetanus Toxoid Vaccination: No Hx Influenza Vaccination: No Hx Pneumococcal Vaccination: No Review Of Systems Except As Marked, All Systems Reviewed And Found Negative. Constitutional: Negative for: Fever, Chills Cardiovascular: Positive for: Other (Chest Tightness) Respiratory: Positive for: Cough, Sputum Gastrointestinal: Negative for: Vomiting, Abdominal Pain, Diarrhea Physical Exam - Physical Exam Appears: Non-toxic, No Acute Distress Skin: Warm, Dry, No Rash Head: Atraumatic, Normacephalic Eye(s): bilateral: Normal Inspection, PERRL, EOMI Ear(s): Bilateral: Normal Oral Mucosa: Moist Throat: Normal, No Erythema, No Exudate Neck: Normal ROM Chest: Symmetrical, No Tenderness Cardiovascular: Rhythm Regular, No Murmur Respiratory: Normal Breath Sounds, No Rales, No Rhonchi, No Wheezing Gastrointestinal/Abdominal: Soft, No Tenderness Back: Normal Inspection, No CVA Tenderness Extremity: Normal ROM, No Swelling Extremity: Bilateral: Atraumatic, Normal Color And Temperature, Normal ROM Neurological/Psych: Oriented x3, Normal Speech, Normal Motor Gait: Steady ED Course And Treatment O2 Sat by Pulse Oximetry: 95 (RA) Pulse Ox Interpretation: Normal Disposition - Disposition Referrals: [facility] [Outside] [facility] [Outside] Disposition: HOME/ ROUTINE Disposition Time: 14:52 Condition: GOOD Additional Instructions: Follow up with the medical doctor within 1-2 days. Return if worsened. 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 - Scribe Statement The provider has reviewed the documentation as recorded by the Scribe Danni Guido All medical record entries made by the Scribe were at my direction and personally dictated by me. I have reviewed the chart and agree that the record accurately reflects my personal performance of the history, physical exam, medical decision making, and the department course for this patient. I have also personally directed, reviewed, and agree with the discharge instructions and disposition.
== END 2018-12-25 15:21 | disposition home or self-care (01) ==
LOC: C.ER 14:00
DX: J45.909 Unspecified asthma, uncomplicated (principal)